=== PATIENT | female | born 1990 | race Caucasian/White ===

== ENCOUNTER 2025-07-17 02:29 | Emergency (ER) | payer OTHER, SELFPAY ==
[2025-07-17 02:30] VITALS: BP 123/71; PULSE 79; RESP 16; TEMP 36.8; O2SAT 100; BMI 25.1
--- NOTE | 2025-07-17 02:41 | ED.VIS.FEGU ---
HPI HPI - Female History of Present Illness Chief Complaint: Vag Bld, Preg Informant: patient, spouse/S.O. and EMS Associated Symptoms Last known menstrual period: 04/03/25 P: 6 Ab: 0 Narrative Narrative: 34-year-old female just darted having vaginal bleeding about an hour and a half ago. Some mild pelvic discomfort nonlateralizing, a little lightheadedness. No syncope, no injuries or falls. States she is about 14 weeks along has not seen her nurse hydrodynamics teacher yet this . Unknown blood type but thinks it may be a positive. PFSH PFSH Medical History no medical history no medical history Home Medications ?Medication ?Instructions ?Recorded ?Last Taken ?Type NK 07/17/25 Unknown History Allergy/AdvReac Type Severity Reaction Status Date / Time No Known Allergies Allergy Verified 07/17/25 02:32 Social History Smoking Status: Never smoker ROS ROS ED Constitutional Constitutional ED: Denies chills or fever(s) Eyes Eyes: Denies change in vision or diplopia ENT ENT ED: Denies rhinorrhea or sore throat Cardiovascular Cardiovascular: Reports lightheadedness; Denies chest pain, palpitations or syncope Respiratory/Chest Respiratory/Chest: Denies cough or dyspnea Gastrointestinal Gastrointestinal: Reports abdominal pain and vomiting; Denies diarrhea Genitourinary Genitourinary ED: Denies dysuria or hematuria Musculoskeletal Musculoskeletal: Denies back pain or neck pain Integumentary Denies abscess or rash Neurologic Neurologic: Denies headache(s), paresthesias or weakness Psychiatric Psychiatric: Denies anxiety or suicidal thoughts EXAM Physical Exam Const Vital Signs: 07/17/25 02:30 07/17/25 03:04 Temperature 98.2 F Temperature Source Oral Pulse Rate 79 Pulse Rate [Lying] 81 Pulse Rate [Sitting (for 1 minute prior to obtaining)] 80 Pulse Rate [Standing (for 1 minute prior to obtaining)] 91 Respiratory Rate 16 Blood Pressure 123/71 H Blood Pressure [Lying] 109/65 Blood Pressure [Sitting (for 1 minute prior to obtaining)] 116/72 Blood Pressure [Standing (for 1 minute prior to obtaining)] 121/78 H Blood Pressure Mean 88 Blood Pressure Mean [Lying] 79 Blood Pressure Mean [Sitting (for 1 minute prior to obtaining)] 86 Blood Pressure Mean [Standing (for 1 minute prior to obtaining)] 92 Pulse Ox 100 Oxygen Delivery Method Room Air Positive well nourished and well developed Constitutional Narrative: Well-appearing no distress General Appearance ED: well developed and NAD HEENT Reports moist mucous membranes normocephalic and atraumatic Eyes PERRL and EOMs intact bilaterally Neck full ROM and supple Resp normal respiratory effort and clear to auscultation bilaterally Cardio regular rate, regular rhythm and no murmurs Rate: Negative for tachycardic GI non-distended GI Narrative: Minimal subjective suprapubic tenderness otherwise benign abdomen Auscultation: normoactive bowel sounds Palpation: soft Back/Spine no CVA tenderness General Back: other FROM Extremity normal to inspection General Extremety ED: Negative for edema, pulses abnormal or tenderness General Extremity: Negative for edema or pulses abnormal Neuro oriented x3, CN's II-XII intact bilaterally and no sensory deficits noted Sensorium / Orientation: awake and alert Motor Exam: strength 5/5 throughout Skin no rashes or lesions noted and no wounds MDM MDM MDM Narrative Medical decision making narrative: I did a bedside ultrasound, shows a single live intrauterine with excellent motion, crown-rump length consistent with a 14-week and 0-day , heart tones 158. Reassured mother and her significant other. Orthostatics are negative, her hemoglobin is 10.8 which is lower than expected but I do not have anything recent to compare to. She will need to have this followed up on. Blood type is a positive so RhoGAM is not indicated. Patient doing well, she does not have ongoing vaginal hemorrhage while here in emergency department and she admits it is less than it was at home. Stable for follow-up. History & Record Review Additional record(s) reviewed:: Prior labs (No record of blood type) Lab Data Attestation: I reviewed the patient's lab results. Labs: Laboratory Results - last 24 hr 07/17/25 07/17/25 02:40 02:45 WBC 6.1 RBC 3.50 L Hgb 10.8 L Hct 31.7 L MCV 90.6 MCH 30.9 MCHC 34.1 RDW Std Deviation 42.0 RDW Coeff of Robin 12.9 Plt Count 153 MPV 10.6 Blood Type A POSITIVE Discharge Plan Triage Chief Complaint: Vag Bld, Preg ED Provider: Kain Goldberg Dx/Rx/DC Orders Clinical Impression: Threatened in second trimester Instructions: Vaginal Bleeding During Prescriptions: No Action NK Primary Care Provider: Malick Delgado Referrals: your nurse hydrodynamics teacher [Other] - As soon as possible Activity Restrictions/Additional Instructions: Today on 07/17/2025, baby is measuring approximately 14 weeks 0 days, heart tones 158. Your hemoglobin is 10.8. This is a little lower than expected for this stage of , this will need to be rechecked in the near future. Blood type is A+. Print Language: [place] Disposition Disposition: Home, Self Care
[2025-07-17 02:56] LABS: Hematocrit 31.7 % (37-47); Hemoglobin 10.8 g/dL (12.0-15.0); Mean Corp Hgb Conc 34.1 g/dL (32-36); Mean Corpuscular Volume 90.6 fL (81-99); Mean Platelet Vol. 10.6 fl (6.2-12.0); Platelet Count 153 K/mm3 (150-450); RBC Distribution Width CV 12.9 % (11.6-14.6); RBC Distribution Width SD 42.0 fl (35.1-43.9); Red Blood Count 3.50 M/mm3 (4.2-5.4); White Blood Count 6.1 K/mm3 (4.4-11.0)
[2025-07-17 03:04] VITALS: BP 109/65; BP 116/72; BP 121/78; PULSE 80; PULSE 81; PULSE 91
[2025-07-17 03:46] VITALS: BP 108/65; PULSE 77; RESP 18; TEMP 36.7; O2SAT 98
== END 2025-07-17 03:47 | disposition home or self-care (01) ==
PROVIDERS: Emergency Provider Emergency Medicine; PCP Family Medicine; Visit Provider Emergency Medicine
DX: O20.0 Threatened abortion (principal); Z3A.14 14 weeks gestation of pregnancy
CPT/HCPCS: 85027; 86900; 86901; 99285; A4216